=== PATIENT | male | born 1950 | race Caucasian/White ===

== ENCOUNTER → 2016-07-19 | Outpatient (CLI) | payer BC ==
[~2016-07-19] MED LIST: ACIDOPHILUS1 EAC3 PO; ASPIRIN EC81 M1 PO; COLACE100 MG PO; COLCHICINE 0.60.6 M1 PO; DUONEB 2.5-0.5 M3 ML INH; LEVAQUIN 500 M500 M2 PO; LISINOPRIL2.5 MG; LORTAB; LORTAB PO; MEDROL DOSPAK21 TAB PO; MIRALAX255 GM; MUCINEX600 MG PO; NEURONTIN 300300 M1 PO; NORCO 10-325 T1 EACH PO; NORCO 5-325 TA1 EACH PO; PREDNISONE 1 MG1 M1 PO; PREDNISONE 20 M20 MG PO; PREDNISONE 5 MG5 M1; PREDNISONE 5 MG5 M1 PO; PRILOSEC OTC20 MG PO; PROTONIX40 M1 PO; TOPROL XL25 MG; TOPROL XL50 MG PO; VANCOCIN 250 M250 M1 PO; VITAMIN D1000 UNI1 PO; ZANAFLEX2 M1 PO; ZESTRIL20 MG PO; ZPAK PO
== END ==
LOC: CAT 02:21
DX: R91.1 Solitary pulmonary nodule (principal)

== ENCOUNTER → 2016-08-15 | Outpatient (CLI) | payer BC | LOC: PET 08-08 15:43 | DX: R91.1 Solitary pulmonary nodule (principal) ==

== ENCOUNTER → 2016-09-06 | Outpatient (CLI) | payer BC ==
[~2016-09-06] VITALS: Ht 185.4 cm; Wt 113.4 kg
[~2016-09-06] MED LIST changes: +ASPIR 8181 MG PO; +JANUVIA50 MG PO
--- NOTE | ~2016-09-06 | S ---
[facility] [place] [address] SURGICAL PATH RPT PROCEDURE Name: APOLINAR POLANCO Room #: REG ALHAJI Surya#: [id number] Admission: 09/06/16 Date of : 54 Discharge: Report #: [id number] Path Case #: [id number] PATHOLOGY REPORT COLLECTION DATE: 09/06/2016 RECEIVED DATE: 09/06/2016 SUBMITTING PHYS: Dr. 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 (Please see comment) COMMENT: The findings in this case were discussed with Dr. Ten Mcclure on 09/11/2016. This case has also been reviewed by Dr. Regina Mcclure who agrees with the diagnosis of malignancy. Controlled immunoperoxidase stains are performed and show the following results in the tumor cells: Napsin: Negative TTF: Positive Cytokertin 7: Positive CK56: Negative P40: Negative (CHARLOTTE:mee; d/t: 09/10/2016) PATHOLOGIST: Mary Kay Cunningham M.D. REPORT ELECTRONICALLY SIGNED BY: Mary Kay Cunningham M.D. DATE/TIME: 09/11/2016 15:09 * * * * * * * * * * * * GROSS PATHOLOGY: The specimen is received in formalin labeled "Apolinar Polanco, right lung lesion". Received are multiple segments of pale wyatt friable soft tissue measuring 0.5 x 0.4 x 0.1 cm in aggregate dimensions. The specimen is filtered and entirely submitted in cassette A1. (CAA; 09/07/2016) CLINICAL HISTORY: [facility] [place] [address] SURGICAL PATH RPT PROCEDURE Name: RICKIAPOLINAR Room #: REG [facility] Ellen..#: [id number] Admission: 09/06/16 Date of : 54 Discharge: Report #: [id number] Path Case #: [id number] Right lung lesion INITIAL CPT CODE(S): A; 09620, 42933, 89406, 66828, 74475, 34584 Professional [facility] performed by [facility] [address] , [place] [address] Technical services performed by [facility] at [address] [place] [address], [place] [address]. [facility] [address] [place] [address] PHONE: [phone] DIRECTOR: Tha Smith M.D. * * * END OF REPORT * * *
[2016-09-06 07:56] VITALS: BP 151/78
[2016-09-06 08:01] LABS: HEMATOCRIT 43.7 % (42.0-52.0); HEMOGLOBIN 14.5 gm/dL (14.0-18.0); MCH 30.9 pg (26.0-34.0); MCHC 33.1 g/dL (28.0-37.0); MCV 93.3 fL (80.0-100.0); RBC 4.69 mil/uL (4.50-6.00); RDW 14.8 % (10.5-14.5); WBC 12.9 thou/uL (4.0-11.0)
[2016-09-06 08:07] LABS: POTASSIUM 3.2 mmol/L (3.5-5.1)
[2016-09-06 08:09] VITALS: BP 151/78
[2016-09-06 08:11] LABS: APTT 26.8 Seconds (24.5-32.8); PROTIME 10.3 Seconds (9.3-11.4)
[2016-09-06 09:07] VITALS: BP 139/77
[2016-09-06 09:28] VITALS: BP 135/79
== END ==
LOC: CAT 07:29
PROVIDERS: Radiology Diagnostic Radiology
DX: C34.91 Malignant neoplasm of unspecified part of right bronchus or lung (principal); E11.9 Type 2 diabetes mellitus without complications; I10 Essential (primary) hypertension; J44.9 Chronic obstructive pulmonary disease, unspecified

== ENCOUNTER 2016-10-04 05:36 | Day surgery (SDC) | payer BC ==
[~2016-10-04] VITALS: Ht 185.4 cm; Wt 114.8 kg
--- NOTE | ~2016-10-04 | P ---
[facility] [place] [address] PROCEDURE REPORT Name: APOLINAR ROBISON Room #: DEP [facility] M..#: [id number] Admission: 10/04/16 Attend Phys: Andres Johnson MD Discharge: 10/04/16 Date of : 54 Report #: [id number] THIS REPORT FOR: //name// CC: Harrison Mcclure MD DATE OF SERVICE: 10/04/2016 PROCEDURE: Fiberoptic bronchoscopy with endobronchial ultrasound and sampling of a 11R lymph node using endobronchial ultrasound under general endotracheal anesthesia. INDICATION: Lung cancer with right infrahilar PET active lymph node. ASA classification class II. PROCEDURE NOTATION: After discussing risks and benefits of the planned procedure with patient and family, he decided to proceed. After obtaining informed consent, anesthesia service took him to OR room 6, where he was placed under general endotracheal anesthesia. Please see their notations for details. Once accomplished, bronchoscope was passed through an 8.5 endotracheal tube until the distal trachea was seen. Endotracheal tube was in an adequate position. Airways were surveyed. The mainstem, lobar, segmental and subsegmental bronchi were all explored with a standard white light bronchoscope and all appeared patent, with no significant anatomic variation or disease, except for some scattered mucus plugging that was easily purged and aspirated. The white light bronchoscope was removed and the endobronchial ultrasound device was inserted. All lymph node stations were evaluated. Of significance, there was an 8-mm 11R, a 6-mm 10R, a 5-mm 7 and a 5-mm 11L. No significant 4L or 4R lymph nodes were noted. Because of the small size of the lymph nodes, the 11R only was sampled. The bronchoscope went slightly into the right lower lobe and positioned toward the medial basilar segment to get a good view. Several passes, 9, using 22 and 25-gauge needle were obtained in this area. Multiple passes were obtained because the first 2 passes showed only blood on initial rapid onsite pathology. There were some lymphocytes on this, but no significant lymphoid tangled or other findings suggestive that we were in a lymph node, despite endobronchial ultrasound confirming node was in good position. Additional 3 passes were obtained with the subsequent last pass showing good lymphoid material. A total of 9 passes were made with most of this material going in formalin and with final pathology pending. IMPRESSION: Lung cancer with right infrahilar node, status post endobronchial ultrasound under general endotracheal anesthesia with multiple biopsies of this node. [address] [address] PROCEDURE REPORT Name: APOLINAR ROBISON Room #: DEP [facility].#: [id number] Admission: 10/04/16 Attend Phys: Andres Johnson MD Discharge: 10/04/16 Date of : 54 Report #: [id number] PLAN: Await pathology. Discussed with family post-procedure. By: 0914 [id number] Andres Johnson MD /kayla
--- NOTE | ~2016-10-04 | CNG ---
[facility] Eddie [address]es [facility] [place] [address] CYTO-NONGYN REPORT PROCEDURE Name: APOLINAR POLANCO Room #: DEP [facility] Surya#: [id number] Admission: 10/04/16 Date of : 54 Discharge: 10/04/16 Report #: [id number] Path Case #: [id number] CYTOPATHOLOGY REPORT COLLECTION DATE: 10/04/2016 RECEIVED DATE: 10/04/2016 SUBMITTING PHYS: Dr. Andres Johnson OTHER PHYS: CLINICAL HISTORY: Lymph node 13R passes 1-8 SPECIMEN(S) RECEIVED: A.EBUS guided TBNA, lymph node 13R passes 1-8 * * * * * * * * * * * * FINAL DIAGNOSIS: A. Lymph node 11R passes 1-8, EBUS guided TBNA: - No malignant cells identified. -Lymphoid tangles, pigmented macrophages and histiocytes identified consistent with an aspiration of a lymph node. - Scattered mucous glands and fibrous connective tissue identified. PATHOLOGIST: Regina Mcclure M.D. REPORT ELECTRONICALLY SIGNED BY: Regina Mcclure M.D. DATE/TIME: 10/05/2016 13:51 * * * * * * * * * * * * GROSS PATHOLOGY: A. EBUS guided TBNA, lymph node 13R passes 1-8: The specimen is labeled "Apolinar Polanco" and consists of six fixed slides. Fifty mL of dark brown fluid in formalin from the needle rinse is also submitted and a cell block only was prepared from this material. (mm 6.15.2017) IMMEDIATE EVALUATION: A. FNA, lymph node 13R passes 1-8; Per Dr. Mcclure: Pass 1- blood, Pass 5- redirected needle blood, Pass 8- redirected histocytes and lymphocytes consistent with an aspiration of a lymph node. Professional services performed under supervision of [facility] Hand at [address] [place] [address] , [place] [address]. PSYCHOLOGIST RESEARCH ASSISTANT(S): JACKY Allen([facility]) INITIAL CPT CODE(S): A; 18692, 69395, 22961, 88144(2) Professional services performed by [facility] at [address] , [address] [place] [address] CYTO-NONGYN REPORT PROCEDURE Name: APOLINAR POLANCO Room #: DEP [facility] Janel.#: [id number] Admission: 10/04/16 Date of : 54 Discharge: 10/04/16 Report #: [id number] Path Case #: [id number] Technical services performed by [facility] at [address] [place] [address], [facility] [address], [place] [address]. [address] [address] PHONE: [phone] DIRECTOR: Tha Smith M.D. * * * END OF REPORT * * *
[~2016-10-04 05:36] MED LIST changes: +ACIDOPHILUS1 EAC2 PO; +DEMADEX20 MG PO; +VITAMIN D31000 UNI2 PO; +ZOLOFT50 MG PO
[2016-10-04 07:08] LABS: CALCIUM 9.3 mg/dL (8.5-10.1); POTASSIUM 3.7 mmol/L (3.5-5.1)
[2016-10-04 07:20] VITALS: BP 152/84
[2016-10-04 10:14] VITALS: BP 152/84
== END 2016-10-04 10:30 | disposition home or self-care (01) ==
LOC: TBA 05:36 → OR 05:36
PROVIDERS: Internal Medicine Pulmonary Disease
DX: C34.91 Malignant neoplasm of unspecified part of right bronchus or lung (principal); J44.9 Chronic obstructive pulmonary disease, unspecified; R09.02 Hypoxemia; E11.9 Type 2 diabetes mellitus without complications; Z98.890 Other specified postprocedural states; F32.9 Major depressive disorder, single episode, unspecified; F41.9 Anxiety disorder, unspecified; Z87.891 Personal history of nicotine dependence; I11.0 Hypertensive heart disease with heart failure; I50.9 Heart failure, unspecified; Z95.1 Presence of aortocoronary bypass graft; K21.9 Gastro-esophageal reflux disease without esophagitis
CPT/HCPCS: 62110; 62900; 70005

== ENCOUNTER → 2017-04-25 | Outpatient (CLI) | payer BC | LOC: RAD 10:24 | DX: J44.1 Chronic obstructive pulmonary disease with (acute) exacerbation (principal); J45.901 Unspecified asthma with (acute) exacerbation ==

== ENCOUNTER → 2017-06-03 | Outpatient (CLI) | payer BC | LOC: RAD 05-28 12:43 | DX: J20.9 Acute bronchitis, unspecified (principal); J45.901 Unspecified asthma with (acute) exacerbation; J44.1 Chronic obstructive pulmonary disease with (acute) exacerbation; B34.9 Viral infection, unspecified ==